=== PATIENT | male | born 1990 | race Hispanic/Latino ===

== ENCOUNTER 2019-01-23 09:05 | Emergency (ER) | payer OTHER ==
[2019-01-23] MEDS ORDERED: ONDANSETRON ODT 4 MG TAB ONE (09:23)
[2019-01-23] MEDS ORDERED: HYDROCODONE/ACETAMINOPHEN 10/325 MG TAB ONE (09:24)
== END 2019-01-23 09:44 | disposition home or self-care (01) ==
LOC: EDH 09:05
DX: H60.92 Unspecified otitis externa, left ear (principal)
CPT/HCPCS: 82948